=== PATIENT | female | born 1995 | race American Indian/Alaskan Native ===

== ENCOUNTER 2016-07-08 13:25 | Emergency (ER) | payer OTHER ==
[2016-07-08 14:28] VITALS: BP 103/71
[2016-07-08] MEDS ORDERED: PEPCID PO ONE (16:46)
--- NOTE | 2016-07-08 16:56 | Emergency Department Report ---
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 The patient states that approximately one hour prior to arrival, she developed a spreading and progressive itching rash throughout the extremities and upper body, currently moderate to severe. The patient states that she ate a sandwich from [email or web address] that was contaminated with tomato juice. The patient denies swelling of the lips, tongue, sore throat, dyspnea, neck stiffness, dysphagia, stridor, drooling, difficulty tolerating secretions, dysphonia, hoarseness of voice, abdominal pain. ED Past Medical Hx - Past Medical History Previous Medical History?: No - Surgical History Past Surgical History?: No - Social History Smoking Status: Never Smoker Substance Use Type: None - Medications Home Medications: Home Medications Medication Instructions Recorded Confirmed Last Taken Type Diphenhydramine HCl [Benadryl 25 mg PO Q6HR PRN #20 tablet 07/08/16 Unknown Rx Allergy TAB] predniSONE [Deltasone] 20 mg PO QDAY #3 tab 07/08/16 Unknown Rx ED Review of Systems ROS: Stated complaint: ALLERGIC REACTION Other details as noted in HPI Constitutional: denies: fever ENT: denies: throat or neck pain Respiratory: denies: cough, shortness of breath Cardiovascular: denies: chest pain Endocrine: denies unexplained weight loss or gain Gastrointestinal: denies: abdominal pain, nausea Genitourinary: denies: dysuria Musculoskeletal: denies: leg swelling Skin: reports rash Neurological: denies: headache Hematological/Lymphatic: denies: easy bleeding or easy bruising Psych: denies sadness or hopelessness Physical Exam - Physical Exam Vital Signs: Vital Signs 07/08/16 07/08/16 14:27 14:28 Temperature 97.6 F Pulse Rate 79 Respiratory 16 16 Rate Blood Pressure 103/71 [Left] O2 Sat by Pulse 99 99 Oximetry Physical Exam: General: well-nourished, well-developed, no acute distress Head: Normocephalic, atraumatic Eyes: normal sclera ENT: Mucous membranes are pink and moist, no swelling of the lips, tongue, uvula , or oropharynx Neck: trachea midline, neck supple, No neck stiffness, no cervical adenopathy Respiratory: Breath sounds equal bilaterally, no wheezing, rales, or rhonchi Cardio: S1 and S2 present, no murmurs, rubs, gallops, capillary refill is brisk Abdomen: Normoactive bowel sounds, soft abdomen, no tenderness Musc: No pitting edema Skin: Blanching red small circular maculopapules present to the bilateral upper extremities Neuro: no facial drooping, normal speech Psych: Normal affect ED Course Vital Signs 07/08/16 07/08/16 14:27 14:28 Temperature 97.6 F Pulse Rate 79 Respiratory 16 16 Rate Blood Pressure 103/71 [Left] O2 Sat by Pulse 99 99 Oximetry ED Medical Decision Making - Medical Decision Making The patient was seen and examined by myself. The patient received Solu-Medrol and Benadryl prior to arrival. On initial evaluation, the patient was found to be in no distress. The patient is given a tablet of Pepcid. The patient is monitored in the emergency department for greater than 1 hour. The patient was reevaluated and reported that her symptoms were resolved. The patient's rash has resolved. The patient is stable for discharge with outpatient follow-up. The patient is given follow-up and return instructions. The patient expressed understanding and agreed with the plan. The patient is discharged in stable condition. Critical care attestation.: If time is entered above; I have spent that time in minutes in the direct care of this critically ill patient, excluding procedure time. ED Disposition Clinical Impression: Hives Allergic reaction to food Qualifiers: Encounter type: initial encounter Qualified Code(s): T78.1XXA - Other adverse food reactions, not elsewhere classified, initial encounter Disposition: DISCHARGED TO HOME OR SELFCARE Is pt being admited?: No Does the pt Need Aspirin: No Condition: Stable Instructions: Urticaria (ED), Food Allergy (ED) Prescriptions: Diphenhydramine HCl [Benadryl Allergy TAB] 25 mg PO Q6HR PRN #20 tablet PRN Reason: itching or rash predniSONE [Deltasone] 20 mg PO QDAY #3 tab Referrals: PRIMARY CARE, [Primary Care Provider] - 3-5 Days Time of Disposition: 16:47
== END 2016-07-08 17:30 | disposition home or self-care (01) ==
LOC: ED 13:25
DX: L50.9 Urticaria, unspecified (principal); T78.1XXA Other adverse food reactions, not elsewhere classified, initial encounter
CPT/HCPCS: 99283